=== PATIENT | male | born 1945 | race Two or more races ===

== ENCOUNTER → 2017-01-12 | Outpatient (CLI) | payer MEDICARE, BC ==
--- NOTE | 2017-01-12 15:57 | RADRPT ---
PROCEDURE: XR left knee. CLINICAL INDICATION: Knee pain TECHNIQUE: AP weightbearing, lateral weightbearing and sunrise views are available for review. COMPARISON: 05/08/2015 FINDINGS: There is mild to moderate osteoarthrosis involving the medial tibial femoral compartment, lateral ti bial femoral compartment and patellofemoral compartment. This is associated with joint space narrowi ng, subchondral sclerosis and osteophytosis. There is a small suprapatellar joint effusion There is otherwise normal mineralization, architecture and alignment. No fractures are identified. No osseous lesions are identified. The soft tissues are unremarkable. There is arterial vascular c alcification. IMPRESSION: Mild to moderate osteoarthrosis involving the medial tibial femoral compartment, lateral tibial femo ral compartment and patellofemoral compartment. Small suprapatellar joint effusion RPTAT: [facility] .Howard Schmidt MD, Date Time Electronically viewed and signed by .Howard Schmidt MD, on 01/12/2017 15:57 .B/
--- NOTE | 2017-01-13 20:26 | HKNOTE ---
DATE OF SERVICE: 01/12/2017 MAIN COMPLAINT: Pain in the left knee. HISTORY OF MAIN COMPLAINT: The patient is a 69-year-old male who saw me on 05/08/2015 complaining o f pain in both knees. The patient has a new problem now. He complains of pain in his left knee which "is a different stor y." He had pain for about 4 weeks in the knee. There is no history of injury to the knee. The kne e swells a lot, locks, and feels unstable. He takes Tylenol and Lyrica for the pain. PAST MEDICAL HISTORY: Negative. PAST SURGICAL HISTORY: Carotid artery surgery by Dr. Dowell in 2011. Bypass surgery of the right l eg 2014. ALLERGIES: NONE. MEDICATIONS: 1. Lyrica. 2. Xarelto. 3. Atenolol. 4. Atorvastatin. PHYSICAL EXAMINATION: GENERAL: The patient comes in with his . VITAL SIGNS: Height 5 feet 7 inches, weight 220 pounds. Blood pressure 116/80, temperature 97.5. LEFT KNEE: The left knee shows normal alignment. Active and passive extension lacks 15 degrees. Act gege and passive flexion lacks 20 degrees. Marked pain at all limits of motion with 2+ effusion, tend er over the joint line. The medial and lateral collateral ligaments and cruciate ligaments are inta ct. Chalino test is negative. There is no scarring, crepitus, or cysts. The patella tracks normally. There is no tenderness on the articular surface of the patella or in the patellar groove. The Q ang le is normal. IMAGING: Plain x-rays of the left knee obtained today were reviewed. These show moderate narrowing along the medial joint line and small osteophytes along the medial joint line. DISCUSSION: The patient's symptoms are those of an internal derangement of the knee. He has some a rthritis in the knee, but certainly not sufficient to account for these symptoms. DIAGNOSES: 1. Internal derangement of the left knee. 2. Degenerative osteoarthritis of the left knee. 3. Status post carotid artery surgery. 4. Status post cardiac bypass surgery. MANAGEMENT: The patient is being sent for an MRI scan of the left knee. He is going on a [place] in 2 weeks. Further management will depend upon the findings, but most certainly he will no t be able to have an arthroscopic operation on the knee within the short space of time. Will have t o give him symptomatic treatment until he gets back. He will be called with the result of the MRI. The patient will be called on his cell phone, . Dictated By: SÁNCHEZ SWENSON/GAVI Conf#: [id number] DID#: [id number]
== END | disposition home or self-care (01) ==
LOC: HKI 14:49
DX: M17.12 Unilateral primary osteoarthritis, left knee (principal); M23.92 Unspecified internal derangement of left knee; Z95.1 Presence of aortocoronary bypass graft
CPT/HCPCS: 73562; G0463

== ENCOUNTER → 2017-02-24 | Outpatient (CLI) | payer MEDICARE, BC ==
--- NOTE | 2017-02-25 04:40 | HKNOTE ---
DATE OF SERVICE: 02/24/2017 The patient comes in with his to discuss his MRI scan of his knee. He states that, since he la st saw me, his knee is completely free of symptoms. PHYSICAL EXAMINATION: LEFT KNEE: The left knee shows normal alignment. Active and passive extension is 0 degrees. Active and passive flexion is 135 degrees. The medial and lateral collateral ligaments and cruciate ligamen ts are intact. Chalino test is negative. There is no effusion, tenderness, scarring, crepitus, or cy sts. The patella tracks normally. There is no tenderness on the articular surface of the patella or in the patellar groove. The Q angle is normal. The MRI scan of his left knee obtained on 02/01/[address] 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 DISCUSSION: The patient's symptoms seem to have settled down now. When he saw me last, he had the absolutely classic combination of symptoms and clinical findings associated with torn meniscus. Wit h great difficulty, I was able to explain to the patient through his (speaking Dutch) that th e MRI scan is a miraculous technology but has a 5% chance of missing pathology and a 5% chance of se eing pathology that does not exist. Given the fact that his knee is now improved, no intervention is recommended. If his classic sympto ms of an internal derangement should return, he should call me and we should set up a time for him t o have an arthroscopic operation on the knee. I gave them illustrations as to how a torn meniscus m ight be symptomatic for a while and then nonsymptomatic. It is not known if he has a ____ negative MRI scan. The patient will see me again if and when his knee causes him significant symptoms. Dictated By: SÁNCHEZ SWENSON/GAVI Conf#: [id number] DID#: [id number]
== END | disposition home or self-care (01) ==
LOC: HKI 13:47
DX: M25.562 Pain in left knee (principal)
CPT/HCPCS: G0463